=== PATIENT | female | born 1975 | race African-American/Black ===

== ENCOUNTER → 2016-04-18 | Day surgery (SDC) | payer OTHER ==
[2016-04-18 10:08] LABS: HCT 42.1 % (37.0-47.0); HGB 14.3 g/dl (12.5-16.0); MCH 30.4 pg (25.0-31.0); MCV 89.6 fL (78.0-100.0); MPV 11.3 fL (6.0-9.5); RBC 4.7 M/uL (4.20-5.40); RDW 12.8 % (11.5-14.0); WBC 9.2 K/uL (4.0-10.5)
[2016-04-18 10:18] LABS: INR 0.97 (0.9-1.2); PROTHROMBIN TIME 12.5 SECONDS (11.7-14.0); PTT 29.7 SECONDS (23.2-31.4)
[2016-04-18 10:24] LABS: ALBUMIN 3.8 g/dL (3.5-5.0); CREATININE 0.7 mg/dL (0.5-1.0); POTASSIUM 3.7 mmol/L (3.5-5.1); TOTAL PROTEIN 6.8 g/dL (6.4-8.3)
[2016-04-18 10:43] LABS: TSH (THYROID STIM HORMONE) 1.04 uIU/mL (0.270-4.200)
[2016-04-18 10:45] LABS: FOLIC ACID (SERUM) 14.7 ng/mL (4.4-31.0)
[2016-04-18 10:47] LABS: VITAMIN D (25-OH) 7.34 ng/mL
== END | disposition home or self-care (01) ==
LOC: FAS 10:07
PROVIDERS: Surgery
DX: K29.50 Unspecified chronic gastritis without bleeding (principal); E66.01 Morbid (severe) obesity due to excess calories; K44.9 Diaphragmatic hernia without obstruction or gangrene; Z98.84 Bariatric surgery status; I10 Essential (primary) hypertension; G47.33 Obstructive sleep apnea (adult) (pediatric); E78.5 Hyperlipidemia, unspecified; M54.5 Low back pain; Z87.891 Personal history of nicotine dependence
CPT/HCPCS: 36415; 80053; 80061; 82306; 82607; 82728; 82746; 83036; 83540; 83550; 84425; 84443; 84703; 85610; 85730; 88305; J2704